=== PATIENT | female | born 1975 | race Caucasian/White ===

== ENCOUNTER 2017-02-18 10:31 | Observation (INO) | payer BC, OTHER ==
--- NOTE | 2017-02-18 10:33 | PDOC ---
History of Present Illness - General Chief Complaint: Nausea/Vomiting Stated Complaint: FEVER, VOMITING Time Seen by Provider: 02/18/17 10:33 History Source: Patient Exam Limitations: No Limitations - History of Present Illness Initial Comments: 02/18/17 10:36 This is an otherwise healthy 41 yo F who presents to the ER with a complaint of headache, fever, nausea, cough and chest pain His symptoms began three days ago. She awoke at 2am with a complaint of headache and fever. Since that time, she has had Fever (Tmax 101) Frontal headache: 4/10, no radiation, no associated nuchal rigidity, intermittent Chest pain: 4/10, described as pressure, no radiation, associated with cough ( initially dry, now productive of thick yellow sputum) No travel No ill contacts Unable to tolerate po due to nausea Pt has not been able to eat and has barely been able to drink for the past 3 days Pt denies abdominal pain or tenderness Pt denies dysuria PMH: denies PSH: denies Meds: denies ALL: NKDA Social: denies alcohol, drug or cigarette use GENERAL/CONSTITUTIONAL: Yes: fever, chills, weakness, loss of appetite. HEAD, EYES, EARS, NOSE AND THROAT: No: change in vision, ear pain, discharge, sore throat, throat swelling. CARDIOVASCULAR: Yes: chest pain, No: lightheadedness, palpitations, syncope RESPIRATORY: Yes: cough No: shortness of breath, wheezing, hemoptysis, stridor. GASTROINTESTINAL: Yes: nausea, No: vomiting, diarrhea, abdominal pain GENITOURINARY: No: dysuria, hematuria, frequency, urgency, flank pain. MUSCULOSKELETAL: Yes: myalgias No: back pain, neck pain, joint pain, muscle swelling or pain SKIN AND BREASTS: No: lesions, pallor, rash or easy bruising. NEUROLOGIC: Yes: headache No: vertigo, paresthesias, weakness ENDOCRINE: No: unexplained weight gain or loss HEMATOLOGIC/LYMPHATIC: No: anemia, easy bleeding, swelling nodes. GENERAL: The patient is in no acute distress, pt appears uncomfortable. HEAD: Normal with no signs of trauma. EYES: PERRLA, EOMI, sclera anicteric, conjunctiva clear. ENT: Ears normal, nares patent, oropharynx clear without exudates. Moist mucous membranes. NECK: Normal range of motion, supple without lymphadenopathy, JVD, or masses. LUNGS: (+) Rhoncherous breath sounds No wheezes, and no crackles. HEART:Regular rate and rhythm, normal S1 and S2 without murmur, rub or gallop. ABDOMEN: Soft, nontender, normoactive bowel sounds. No guarding, no rebound. No masses palpable. EXTREMITIES: Normal range of motion, no edema. No clubbing or cyanosis. No erythema, or tenderness. NEUROLOGICAL: Cranial nerves II through XII grossly intact. Normal speech. No focal neurological deficits. MUSCULOSKELETAL: Back non-tender to palpation, no CVA tenderness SKIN: Warm, Dry, normal turgor, no rashes or lesions noted. 02/18/17 11:21 02/18/17 11:22 02/18/17 11:23 Past History - Past Medical History Allergies/Adverse Reactions: Allergies Allergy/AdvReac Type Severity Reaction Status Date / Time No Known Allergies Allergy Verified 02/18/17 10:32 Home Medications: Ambulatory Orders NK [No Known Home Medication] 02/18/17 ED Treatment Course - LABORATORY CBC & Chemistry Diagram: 02/18/17 10:37 02/18/17 10:45 Medical Decision Making - Medical Decision Making 02/18/17 11:29 Febrile illness DD includes: Viral illness, influenza, Pneumonia, bronchitis, biliary pathology , UTI Meningitis less likely given chronicity of symptoms, minimal frontal headache and no nuchal rigidity Will do: Sepsis protocol Give IVF, Zofran, Toradol Will do CXR Will re assess 02/18/17 12:04 Laboratory Tests 02/18/17 02/18/17 02/18/17 10:30 10:37 10:45 WBC 4.4 Hgb 12.6 Hct 35.5 Plt Count 158 Neutrophils % 73.9 Lymphocytes % 15.4 BUN 7 Creatinine 0.7 Total Amylase 72 Lipase 53 H Serum , Qual Negative Urine Nitrite Negative Ur Leukocyte Esterase Negative Urine RBC 5-10 Urine WBC 0-3 Ur Epithelial Cells Moderate Urine Bacteria Moderate Pt on her period (blood in urine) No leukocytosis Lipase slightly elevated, Amylase nml Pending CXR Will re assess 02/18/17 12:56 Call placed to [facility] Pt is still pending Lactic Acid and Influenza BP: 87/40 Will give NS bolus again *DC/Admit/Observation/Transfer Diagnosis at time of Disposition: Influenza due to influenza virus, type B Hypotension Qualifiers: Hypotension type: unspecified hypotension type Qualified Code(s): I95.9 - Hypotension, unspecified - Discharge Dispostion Condition at time of disposition: Stable Admit: Yes
[2017-02-18] MEDS ORDERED: SODIUM CHLORIDE 0.9% 1000 ML INFUS.BAG IV ONE (10:34)
[2017-02-18] MEDS ORDERED: ONDANSETRON 4 MG/2 ML VIAL IVPB ONE (10:34)
[2017-02-18 10:35] VITALS: BMI 17.7
[2017-02-18] MEDS ORDERED: ONDANSETRON 4 MG/2 ML VIAL ONE (10:46)
[2017-02-18] MEDS ORDERED: KETOROLAC TROMETHAMINE 30 MG/1 ML VIAL IVPUSH ONE (11:21)
[2017-02-18 11:23] LABS: PH,URINE 5.5 (4.5-8); URINE APPEARANCE Cloudy; URINE BILIRUBIN Negative (NEGATIVE); URINE GLUCOSE (UA) Negative (NEGATIVE); URINE KETONE 4+ (NEGATIVE); URINE LEUK ESTERASE Negative (NEGATIVE); URINE NITRITE Negative (NEGATIVE); URINE PROTEIN Negative (NEGATIVE); URINE UROBILINOGEN 0.2 E.U/dl (0.2-1.0)
[2017-02-18 11:25] LABS: URINE BLOOD 2+ (NEGATIVE); URINE COLOR YELLOW
[2017-02-18] MEDS ORDERED: KETOROLAC TROMETHAMINE 30 MG/1 ML VIAL ONE (11:36)
[2017-02-18 11:39] LABS: ALBUMIN 4.3 g/dl (3.5-5.0); ALK PHOS 41 U/L (32-92); AMYLASE 72 U/L (25-125); ANION GAP 9 (8-16); BILIRUBIN,TOTAL 0.5 mg/dl (0.2-1.0); CALCIUM 8.5 mg/dl (8.4-10.2); CO2 24 mmol/L (22-28); CREATININE 0.7 mg/dl (0.6-1.3); GLUCOSE,RANDOM 90 mg/dl (74-106); SGOT/AST 28 U/L (10-42); SGPT/ALT 17 U/L (10-40); TOT PROT 6.9 g/dl (6.4-8.3)
[2017-02-18 11:48] LABS: BASOPHIL 1.2 % (0-2.0); MCH 32.7 pg (25.7-33.7); MCHC 35.4 g/dl (32.0-36.0); MEAN CELL VOLUME 92.4 fl (80-96); MEAN PLT VOLUME 8.4 fl (7.5-11.1); NEUTROPHILS 73.9 % (42.8-82.8); PLATELET COUNT 158 K/MM3 (134-434); RDW 11.7 % (11.6-15.6); WHITE BLOOD COUNT 4.4 K/mm3 (4.0-10.0)
[2017-02-18 11:53] LABS: URINE WBC 0-3 (3-5)
[2017-02-18 11:54] LABS: URINE BACTERIA MODERATE /hpf (NEGATIVE)
[2017-02-18] MEDS ORDERED: SODIUM CHLORIDE 0.9% 500 ML INFUS.BAG IV ONE (12:09)
[2017-02-18] MEDS ORDERED: SODIUM CHLORIDE 1,000 ML IV STA (13:01)
[2017-02-18] MEDS ORDERED: OSELTAMIVIR PHOSPHATE 75 MG CAPSULE PO ONE (13:06)
[2017-02-18] MEDS ORDERED: OSELTAMIVIR PHOSPHATE 75 MG CAPSULE ONE (13:45)
[2017-02-18] MEDS ORDERED: PSEUDOEPHEDRINE HCL 30 MG TABLET PO ONE (13:52)
[2017-02-18] MEDS ORDERED: PSEUDOEPHEDRINE HCL 30 MG TABLET ONE ×2 (13:55→14:01)
--- NOTE | 2017-02-18 14:52 | HP ---
[id number] This 41 yr old female developed fever, cough, body aches, fatigue on Thursday. Her fever was 101 and tylenol used with some relief on and off of fever but body aches continued. she did not receive a Flu vaccine this season. She continued to have symptoms and developed dehydration with decreased po intake and output. ER course was notable for: (1) fever (2) hypotension (3) dehydration Recent Travel: no PAST MEDICAL HISTORY:none PAST SURGICAL HISTORY:none Social History: Smoking:none Alcohol: none Drugs: none Recently attempting to conceive. LMP started today Family History:none Allergies No Known Allergies Allergy (Verified 02/18/17 10:32) HOME MEDICATIONS: Home Medications Medication Instructions Recorded NK [No Known Home Medication] 02/18/17 REVIEW OF SYSTEMS CONSTITUTIONAL: POSITIVE: fever, chills, diaphoresis, generalized weakness, malaise, loss of appetite, HEENT: Absent: rhinorrhea, , throat pain, throat swelling, difficulty swallowing, mouth swelling, ear pain, eye pain, visual changes with +nasal congestion CARDIOVASCULAR: Absent: chest pain, syncope, palpitations, irregular heart rate, lightheadedness , peripheral edema RESPIRATORY: Absent: , shortness of breath, dyspnea with exertion, orthopnea, wheezing, stridor, hemoptysis with +cough GASTROINTESTINAL: Absent: abdominal pain, abdominal distension, diarrhea, constipation, melena, hematochezia with + nausea, vomiting, GENITOURINARY: Absent: dysuria, frequency, urgency, hesitancy, hematuria, flank pain, genital pain MUSCULOSKELETAL: Absent: myalgia, arthralgia, joint swelling, back pain, neck pain SKIN: Absent: rash, itching, pallor HEMATOLOGIC/IMMUNOLOGIC: Absent: easy bleeding, easy bruising, lymphadenopathy, frequent infections ENDOCRINE: Absent: unexplained weight gain, unexplained weight loss, heat intolerance, cold intolerance NEUROLOGIC: Absent: headache, focal weakness or paresthesias, dizziness, unsteady gait, seizure, mental status changes, bladder or bowel incontinence PSYCHIATRIC: Absent: anxiety, depression, suicidal or homicidal ideation, hallucinations. PHYSICAL EXAMINATION Vital Signs - 24 hr 02/18/17 02/18/17 02/18/17 10:32 10:49 12:57 Temperature 99.8 F H 98.9 F Pulse Rate 71 Pulse Rate [ 67 Left] Respiratory 18 18 Rate Blood Pressure 103/70 103/70 Blood Pressure 87/51 [Right Arm] O2 Sat by Pulse 100 99 Oximetry (%) 02/18/17 02/18/17 13:02 13:56 Temperature 98.4 F Pulse Rate Pulse Rate [ 67 Left] Respiratory Rate Blood Pressure 87/51 Blood Pressure 93/62 [Right Arm] O2 Sat by Pulse Oximetry (%) GENERAL: Awake, alert, and fully oriented, in no acute distress. HEAD: Normal with no signs of trauma. EYES: Pupils equal, round and reactive to light, extraocular movements intact, sclera anicteric, conjunctiva clear. No lid lag. EARS, NOSE, THROAT: Ears normal, nares patent, oropharynx clear without exudates. Moist mucous membranes. NECK: Normal range of motion, supple without lymphadenopathy, JVD, or masses. LUNGS: Breath sounds equal, clear to auscultation bilaterally. No wheezes, and no crackles. No accessory muscle use. HEART: Regular rate and rhythm, normal S1 and S2 without murmur, rub or gallop. ABDOMEN: Soft, nontender, not distended, normoactive bowel sounds, no guarding, no rebound, no masses. No hepatomegaly or splenomegaly. MUSCULOSKELETAL: Normal range of motion at all joints. No bony deformities or tenderness. No CVA tenderness. UPPER EXTREMITIES: 2+ pulses, warm, well-perfused. No cyanosis. No clubbing. No peripheral edema. LOWER EXTREMITIES: 2+ pulses, warm, well-perfused. No calf tenderness. No peripheral edema. NEUROLOGICAL: Cranial nerves II-XII intact. Normal speech. Normal gait. PSYCHIATRIC: Cooperative. Good eye contact. Appropriate mood and affect. SKIN: Warm, dry, normal turgor, no rashes or lesions noted, normal capillary refill. Color pale Laboratory Results - last 24 hr 02/18/17 02/18/17 02/18/17 10:30 10:37 10:45 WBC 4.4 RBC 3.84 Hgb 12.6 Hct 35.5 MCV 92.4 MCHC 35.4 RDW 11.7 Plt Count 158 MPV 8.4 Neutrophils % 73.9 Lymphocytes % 15.4 Monocytes % 9.5 Eosinophils % 0.0 Basophils % 1.2 Sodium 132 L Potassium 3.4 L Chloride 99 Carbon Dioxide 24 Anion Gap 9 BUN 7 Creatinine 0.7 Creat Clearance w eGFR > 60 Random Glucose 90 Lactic Acid Calcium 8.5 Total Bilirubin 0.5 AST 28 ALT 17 Alkaline Phosphatase 41 Total Protein 6.9 Albumin 4.3 Total Amylase 72 Lipase 53 H Serum , Qual Negative Urine Color Yellow Urine Appearance Cloudy Urine pH 5.5 Ur Specific Francis 1.015 Urine Protein Negative Urine Glucose (UA) Negative Urine Ketones 4+ H Urine Blood 2+ H Urine Nitrite Negative Urine Bilirubin Negative Urine Urobilinogen 0.2 e.u/dl Ur Leukocyte Esterase Negative Urine RBC 5-10 Urine WBC 0-3 Ur Epithelial Cells Moderate Amorphous Urates Few Urine Bacteria Moderate 02/18/17 11:20 WBC RBC Hgb Hct MCV MCHC RDW Plt Count MPV Neutrophils % Lymphocytes % Monocytes % Eosinophils % Basophils % Sodium Potassium Chloride Carbon Dioxide Anion Gap BUN Creatinine Creat Clearance w eGFR Random Glucose Lactic Acid 0.798 Calcium Total Bilirubin AST ALT Alkaline Phosphatase Total Protein Albumin Total Amylase Lipase Serum , Qual Urine Color Urine Appearance Urine pH Ur Specific Francis Urine Protein Urine Glucose (UA) Urine Ketones Urine Blood Urine Nitrite Urine Bilirubin Urine Urobilinogen Ur Leukocyte Esterase Urine RBC Urine WBC Ur Epithelial Cells Amorphous Urates Urine Bacteria ASSESSMENT/PLAN: 41 yr old female with c/o dehydration, fever, body aches, with a few bouts of nausea and vomiting and poor I/O presents to ER with finding of Influenza B and dehydration. 1. Fever -continue with tylenol PRN for fever and body aches, worked well in ER 2. Dehydration -received 4 liters of NS for dehydration and during 4th liter, pt voided x 1 -monitor I and O 3. Influenza -isolation -moving pt All room 605 4. hypotension -continue hydration -monitor v/s 5. Nausea/vomiting -monitor electrolytes -zofran PRN Visit type - Emergency Visit Emergency Visit: Yes ED Registration Date: 02/18/17 Care time: The patient presented to the Emergency Department on the above date and was hospitalized for further evaluation of their emergent condition. - New Patient This patient is new to me today: Yes Date on this admission: 02/18/17 - Critical Care Critical Care patient: No
[2017-02-18] MEDS ORDERED: ONDANSETRON 4 MG/2 ML VIAL IVPB PRN (14:53)
[2017-02-18] MEDS ORDERED: ACETAMINOPHEN 325 MG TABLET (FP) PO PRN (14:53)
[2017-02-18] MEDS ORDERED: SODIUM CHLORIDE 1,000 ML IV SCH (15:00)
[2017-02-19 04:32] LABS: BASOPHIL 0.4 % (0-2.0); EOSINOPHIL 0.2 % (0-4.5); MCH 31.7 pg (25.7-33.7); MEAN CELL VOLUME 93.2 fl (80-96); NEUTROPHILS 59.1 % (42.8-82.8); RDW 12.6 % (11.6-15.6); WHITE BLOOD COUNT 2.1 K/mm3 (4.0-10.0)
[2017-02-19 05:07] LABS: ALBUMIN 3.1 g/dl (3.4-5.0); ANION GAP 9 (8-16); CALCIUM 7.1 mg/dL (8.5-10.1); CO2 25 mmol/L (21-32); CREATININE 0.5 mg/dL (0.55-1.02); GLUCOSE,RANDOM 81 mg/dL (74-106); PHOSPHOROUS 2.1 mg/dL (2.5-4.9); SGOT/AST 15 U/L (15-37); SGPT/ALT 16 U/L (12-78)
[2017-02-19 05:09] LABS: ALK PHOS 38 U/L (45-117); BILIRUBIN,TOTAL 0.2 mg/dL (0.2-1.0); TOT PROT 5.3 g/dl (6.4-8.2)
[2017-02-19 05:18] LABS: MEAN PLT VOLUME 8.1 fl (7.5-11.1); PLATELET COUNT 120 K/MM3 (134-434); PLATELET ESTIMATE SLT DECREASED (NORMAL)
[2017-02-19 05:19] LABS: PLATELET COMMENT2 NO CLUMPING NOTED; PLATELET COMMENT3 NO CLOTTING DETECTED
--- NOTE | 2017-02-19 08:20 | PN ---
Teaching Attending Note Name of Resident: Kandy Navarrete ATTENDING PHYSICIAN STATEMENT I saw and evaluated the patient. I reviewed the resident's note and discussed the case with the resident. I agree with the resident's findings and plan as documented. Patient is feeling better, no fever or chills, no shortness of breath, no nausea or vomiting. Vital Signs Temperature 98.9 F 02/19/17 04:29 Pulse Rate 67 02/19/17 04:29 Respiratory Rate 20 02/19/17 04:29 Blood Pressure 93/55 02/19/17 04:29 O2 Sat by Pulse Oximetry (%) 99 02/18/17 12:57 CBCD WBC 2.1 K/mm3 (4.0-10.0) L 02/19/17 04:20 RBC 3.17 M/mm3 (3.60-5.2) L 02/19/17 04:20 Hgb 10.1 GM/dL (10.7-15.3) L 02/19/17 04:20 Hct 29.6 % (32.4-45.2) L 02/19/17 04:20 MCV 93.2 fl (80-96) 02/19/17 04:20 MCHC 34.0 g/dl (32.0-36.0) 02/19/17 04:20 RDW 12.6 % (11.6-15.6) 02/19/17 04:20 Plt Count 120 K/MM3 (134-434) L 02/19/17 04:20 MPV 8.1 fl (7.5-11.1) 02/19/17 04:20 CMP Sodium 143 mmol/L (136-145) 02/19/17 04:20 Potassium 3.7 mmol/L (3.5-5.1) 02/19/17 04:20 Chloride 109 mmol/L (98-107) H 02/19/17 04:20 Carbon Dioxide 25 mmol/L (21-32) 02/19/17 04:20 Anion Gap 9 (8-16) 02/19/17 04:20 BUN 5 mg/dL (7-18) L 02/19/17 04:20 Creatinine 0.5 mg/dL (0.55-1.02) L 02/19/17 04:20 Creat Clearance w eGFR > 60 (>60) 02/19/17 04:20 Random Glucose 81 mg/dL (74-106) 02/19/17 04:20 Calcium 7.1 mg/dL (8.5-10.1) L 02/19/17 04:20 Total Bilirubin 0.2 mg/dL (0.2-1.0) 02/19/17 04:20 AST 15 U/L (15-37) 02/19/17 04:20 ALT 16 U/L (12-78) 02/19/17 04:20 Alkaline Phosphatase 38 U/L (45-117) L 02/19/17 04:20 Total Protein 5.3 g/dl (6.4-8.2) L 02/19/17 04:20 Albumin 3.1 g/dl (3.4-5.0) L 02/19/17 04:20 Lungs: Decreased BS at the basis Bl. no W/R/R ASSESSMENT AND PLAN: 41 yr old female with c/o dehydration, fever, body aches, with a few bouts of nausea and vomiting and poor I/O presents to ER with finding of Influenza B and dehydration. # Influenza ; feeling better, saleem like to go home, will discharge her on Tamiflu 75mg bid x 4 more days # Acute Pancytopenia post IVF , patient received around 3 liter of IVF, follow up with PMD in 5 days and repeat cbc with diff. # Acute Dehydration with hypotension as per patient , she runs low BP, will give her 500ml bolus of 0.9NS # Acute hypophosphetemia will give her one dose of kphos packet now and total of 2 days. will discharge the patient home today since her and her insisting that she is feeling better and wants to go home. discussed with the patient in detail.
--- NOTE | 2017-02-19 08:35 | DS ---
Physical Exam: SUBJECTIVE: Patient seen and examined Resint in bed comfortably nad. afebrile and hemodynamicaly stable. no complaints at this time. Nausea resolved. No more vomiting. denies f/c, sob, chest pain, palpitations, myagia, malaise, abd pain, diarrhea. OBJECTIVE: Vital Signs Period Temp Pulse Resp BP Sys/Oelary Pulse Ox Last 24 Hr 98.9 F-99.0 F 62-67 20-20 93-117/55-60 PHYSICAL EXAM GENERAL: The patient is awake, alert, and fully oriented, in no acute distress. HEAD: Normal with no signs of trauma. EYES: PERRL, extraocular movements intact, sclera anicteric, conjunctiva clear. ENT: nares patent, oropharynx clear without exudates, moist mucous membranes. NECK: supple. LUNGS: Breath sounds equal, clear to auscultation bilaterally, no wheezes HEART: Regular rate and rhythm, S1, S2 ABDOMEN: Soft, nontender, nondistended, normoactive bowel sounds EXTREMITIES: 2+ pulses, warm, well-perfused, no edema. NEUROLOGICAL: Cranial nerves II through XII grossly intact. Normal speech, gait not observed. PSYCH: Normal mood, normal affect. SKIN: Warm, dry LABS Laboratory Results - last 24 hr 02/19/17 02/19/17 04:20 04:20 WBC 2.1 L RBC 3.17 L Hgb 10.1 L Hct 29.6 L MCV 93.2 MCHC 34.0 RDW 12.6 Plt Count 120 L MPV 8.1 Neutrophils % 59.1 Lymphocytes % 31.1 Monocytes % 9.2 Eosinophils % 0.2 Basophils % 0.4 Platelet Estimate Slt decreased Platelet Comment No clumping noted Sodium 143 Potassium 3.7 Chloride 109 H Carbon Dioxide 25 Anion Gap 9 BUN 5 L Creatinine 0.5 L Creat Clearance w eGFR > 60 Random Glucose 81 Calcium 7.1 L Phosphorus 2.1 L Magnesium 2.0 Total Bilirubin 0.2 AST 15 ALT 16 Alkaline Phosphatase 38 L Total Protein 5.3 L Albumin 3.1 L HOSPITAL COURSE: Date of Admission:02/18/17 This is a previously healthy 41 YO F with no PMH who presented due to dehydration, fever, body aches, with a nausea and NBNB vomiting fore several days leading to poor I/O. IN ED found to be positive for Influenza B and dehydration. Low grade fever 99.8 on admission but states it was 101 at home. Patient treated with 4 liters of NS and given 1 dose of tamiflu. Symptoms resolved and patient was discharged with PO tamifly 75 bid x 4 days total and KPhos summplement x 2 days. Advised to follow up with PCP due to slight pancytopenia (partially dilutional) Date of Discharge: 02/19/17 Minutes to complete discharge: 48 (na) Discharge Summary Reason For Visit: INFLUENZA B,HYPOTENSION Current Active Problems Hypotension (Acute) Influenza B (Acute) Condition: Good - Instructions Diet, Activity, Other Instructions: You were in the hospital because if Influenza infection that caused dehydration. You received some vitamins to replete your electrolytes and plenty of IV fluids. Please take potassium phosphate supplement once a day for 2 days starting tomorrow. Take Tamiflu one pill tonight and then twice a day for 3 more days. Drink plenty of fluid. Follow up with your primary care doctor (Dr. Vito Colby [phone]) after you finish Tamiflu to check your "CBC" cell count, which was a little on the low side (could be a normal variant) return to hospital if symptoms return. Disposition: HOME - Home Medications Comprehensive Discharge Medication List: Ambulatory Orders Valeria WittDb/K pH,Mbdb [PHOS-NaK PACKET -] 1 packet PO DAILY #2 packet 02/19/17 Oseltamivir Phosphate [Tamiflu -] 75 mg PO BID #7 cap 02/19/17 Problem List - Problems (1) Hypotension Code(s): I95.9 - HYPOTENSION, UNSPECIFIED Qualifiers: Hypotension type: unspecified hypotension type Qualified Code(s): I95.9 - Hypotension, unspecified (2) Influenza B Code(s): J10.1 - FLU DUE TO OTH IDENT INFLUENZA VIRUS W OTH RESP MANIFEST This patient is new to me today: Yes Date on this admission: 02/19/17 Emergency Visit: Yes ED Registration Date: 02/18/17 Care time: The patient presented to the Emergency Department on the above date and was hospitalized for further evaluation of their emergent condition. Critical Care patient: No - Discharge Referral Referred to [facility] Med P.C.: No
[2017-02-19 09:29] VITALS: BP 94/63; PULSE 70; TEMP 98.6
[2017-02-19] MEDS ORDERED: NAPH,MB-DB/K PH,MBDB POWDER PACKET PO SCH (10:00)
[2017-02-19] MEDS ORDERED: OSELTAMIVIR PHOSPHATE 75 MG CAPSULE PO SCH ×2 (10:00)
== END 2017-02-19 09:20 | disposition home or self-care (01) ==
LOC: FER 10:31 → J6S 15:18
PROVIDERS: ADMIT Internal Medicine; ATTEND Internal Medicine
DX: J10.1 Influenza due to other identified influenza virus with other respiratory manifestations (principal); R51 Headache; I95.9 Hypotension, unspecified; E86.0 Dehydration; E83.39 Other disorders of phosphorus metabolism; D61.818 Other pancytopenia
CPT/HCPCS: 36415; 71010-TC; 80053; 81003; 81015; 82150; 83605; 83690; 83735; 84100; 84703; 85025; 87040; 87086; 87804; 99285-25; G0378